=== PATIENT | female | born 1995 | race Two or more races ===

== ENCOUNTER 2017-10-01 12:25 | Outpatient (CLI) | payer OTHER | END 2017-10-01 12:37 | disposition home or self-care (01) | LOC: SONOGRAMA 12:25 | DX: E04.0 Nontoxic diffuse goiter (principal) ==

== ENCOUNTER 2024-04-16 05:21 | Day surgery (SDC) | payer OTHER ==
[2024-04-13 11:20] VITALS: BP 115/75
[2024-04-13 11:21] LABS: HEMOGLOBIN 12.8 g/dL (12.0-15.00); MEAN CELL VOLUME 91.7 fL (80.00-100.00); MEAN CORPUSCULAR HEMOGLOBIN 32.5 pg (27.00-32.0); MEAN CORPUSCULAR HGB CONC 35.4 g/dl (32.0-36.0); PLATELET COUNT 277 K/uL (150-450); RED BLOOD COUNT 3.93 M/uL (4.00-6.00); RED CELL DISTRIBUTION WIDTH 13.3 % (11.5-14.5)
[2024-04-13 11:26] LABS: URINE APPEARANCE Clear; URINE BILIRRUBIN Negative (NEGATIVE); URINE BLOOD Negative; URINE COLOR Yellow; URINE GLUCOSE Negative (NEGATIVE); URINE KETONE Negative (NEGATIVE); URINE LEUKOCYTE Negative; URINE NITRATE Negative; URINE PROTEIN Negative (NEGATIVE); URINE UROBILINOGEN 0.2 E.U./dl
[2024-04-13 11:34] LABS: URINE BACTERIA 168.8 uL (0.0-1933); URINE CAST 0.14 uL (0.0-1.40); URINE EPITHELIAL CELLS 7.5 uL (0.0-38.8); URINE RBC 2.5 uL (0.0-20.8); URINE WBC 3.4 uL (0.0-23.2)
[2024-04-13 11:40] LABS: PARTIAL THROMBOPLASTIN TIME 28.9 SECONDS (22.0-34.0); PROTHROMBIN TIME 10.9 SECONDS (9.0-11.5)
[2024-04-13 12:46] LABS: BILIRUBIN TOTAL 0.51 mg/dL (0.3-1.2); CALCIUM 9.3 mg/dL (8.5-10.1); CREATININE SERUM 0.59 mg/dL (0.55-1.02); GFR 123.21; GLOBULINA 3.5 G/DL (2.4-3.5); POTASSIUM 4.27 mEq/L (3.5-5.1); TOTAL PROTEIN 7.5 gm/dL (6.4-8.2)
[~2024-04-16] VITALS: Ht 165.1 cm; Wt 63.5 kg
[2024-04-16] MEDS ORDERED: POVIDONE-IODINE 118 ML BOTT TOP ONE (07:02)
[2024-04-16] MEDS ORDERED: BUPIVACAINE HCL/MPF 0.5% 30ML VIAL ONE (07:02)
[2024-04-16] MEDS ORDERED: DIBUCAINE 30 GM TUBE ONE (07:02)
[2024-04-16] MEDS ORDERED: LIDOCAINE HCL 1%/EPINEPHRINE 20ML VIAL IJ ONE (07:02)
[2024-04-16] MEDS ORDERED: METRONIDAZOLE/SODIUM CHLORIDE 500 MG/100 ML PIGGYBACK IV ONE (07:03)
[2024-04-16] MEDS ORDERED: CEFTRIAXONE SODIUM 2,000 MG VIAL ONE (07:03)
[2024-04-16] MEDS ORDERED: HEMOSTATIC MATRIX 1 KIT KIT TOP ONE (07:05)
[2024-04-16] MEDS ORDERED: OXYCODONE HCL5 MG PO (10:08)
[2024-04-16] MEDS ORDERED: TAMSULOSIN HCL 0.4 MG CAP PO ONE ×2 (10:15→10:57)
[2024-04-16] MEDS ORDERED: MORPHINE SULFATE 4 MG/ML VIAL IV ONE (10:30)
== END 2024-04-16 11:40 | disposition home or self-care (01) ==
LOC: CIR.AMB 05:21
PROVIDERS: ATTEND Surgery
DX: K64.2 Third degree hemorrhoids (principal); K64.4 Residual hemorrhoidal skin tags; K62.5 Hemorrhage of anus and rectum; K62.89 Other specified diseases of anus and rectum; J44.9 Chronic obstructive pulmonary disease, unspecified